=== PATIENT | female | born 1970 | race Two or more races ===

== ENCOUNTER 2024-07-30 19:02 | Emergency (ER) | payer MEDICAID, SELFPAY ==
[2024-07-30 19:03] VITALS: BMI 28.3
[2024-07-30 19:13] VITALS: BP 156/99; PULSE 62; RESP 18; TEMP 36.7; O2SAT 97
--- NOTE | 2024-07-30 19:14 | EKG_ITS ---
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
--- NOTE | 2024-07-30 19:14 | XR_ITS ---
Examination: CT brain head without contrast. 2-D sagittal coronal reconstructions Date and time of exam:July 30, 2024 2019 hrs. Indications: Headache with pressure beginning today CTDI: vol (mGy):47.9 DLP: (mGycm):927 Technique: Multiple CT axial sections of the brain have been obtained, 5 mm slice thickness. Contrast has not been administered. 2-D sagittal, coronal reconstructions have been obtained Low dose protocols were performed. One or more of the following dose reduction techniques were used; automated exposure control, adjustment of the mA and/or KV according to patient size, use of iterative reconstruction technique. Findings: No significant ventricular enlargement. Intra-axial or extra-axial hemorrhage density is not seen. No mass effect or midline shift Basal cisterns are not remarkable. Fourth ventricle is midline. Cranial vault intact. Bilateral otitis externa Impression: Negative for acute hemorrhage, mass effect or midline shift Advise clinical correlation and follow-up accordingly
--- NOTE | 2024-07-30 19:15 | PD.EDRME ---
Rapid Medical Screening Exam RME Arrival date/time: 07/30/24 19:02 54 yo f present to ED for c/o of headache, abd/nausea I have greeted and performed a focused initial assessment of this patient. A comprehensive ED assessment and evaluation of the patient, analysis of all test results, and completion of the medical decision making process will be conducted by additional ED providers. Chief Complaint: Headache Time Seen by Provider: 07/30/24 19:04 Vital signs: Vital Signs Temperature 98.1 F 07/30/24 19:13 Pulse Rate 62 07/30/24 19:13 Respiratory Rate 18 07/30/24 19:13 Blood Pressure 156/99 H 07/30/24 19:13 Pulse Oximetry (%) 997 H 07/30/24 19:13
[2024-07-30] MEDS: ACETAMINOPHEN 500 MG TABLET 1000 MG PO (19:40)
[2024-07-30] MEDS: ONDANSETRON ODT 4 MG TABRAP PO (19:41)
[2024-07-30 19:44] LABS: Basophils % (Auto) 1 % (0-2.5); Eosinophils # (Auto) 0.2 Thou/mm3 (0.0-0.5); Eosinophils % (Auto) 3 % (0-10); Hematocrit 41.4 % (36.0-46.0); Hemoglobin 14.4 g/dL (12.0-16.0); Immature Granulocytes % (Auto) 0 % (0-0); Immature Granulocytes Auto 0.01 Thou/mm3 (0.00-0.00); Lymphocytes # (Auto) 2.6 Thou/mm3 (1.0-4.8); Lymphocytes % (Auto) 43 % (10-50); Mean Corpuscular HGB Conc 34.8 g/dl (31.0-37.0); Mean Corpuscular Hemoglobin 30.4 pg (25.0-35.0); Mean Corpuscular Volume 87 fL (80-100); Monocytes # (Auto) 0.8 Thou/mm3 (0.0-0.8); Monocytes % (Auto) 13 % (0-12); Neutrophils # (Auto) 2.4 Thou/mm3 (1.8-7.7); Neutrophils % (Auto) 40 % (37-80); Nucleated Red Blood Cell % 0 /100 WBC (0); Platelet Count 160 Thou/mm3 (140-440); RDW Standard Deviation 39.9 fL (36.4-46.3); Red Blood Count 4.74 Miln/mm3 (4.00-5.20); White Blood Count 6.1 Thou/mm3 (3.6-11.0)
[2024-07-30 20:04] LABS: Alanine Aminotransferase 54 U/L (10-49); Albumin, Serum 4.5 gm/dL (3.5-5.0); Albumin/Globulin Ratio 1.5 (1.2-2.2); Alkaline Phosphatase 166 U/L (46-116); Anion Gap 7 (7-16); Aspartate Amino Transferase 44 U/L (0-34); BUN/Creatinine Ratio 17 Ratio (12-20); Bilirubin,Total 0.5 mg/dL (0.3-1.2); Blood Urea Nitrogen 12 mg/dL (9-23); Carbon Dioxide 26.2 mMol/L (20.0-31.0); Chloride 109 mMol/L (98-107); Creatinine (Component) 0.7 mg/dL (0.6-1.3); Estimated Creatinine Clearance 79.2 mL/min (>60); Globulin 3.1 gm/dL (2.3-3.5); Glucose 95 mg/dL (74-106); Lipase 41 U/L (12-53); Osmolality,Calculated 282 (275-295); Potassium 4.1 mMol/L (3.4-5.1); Sodium 142 mMol/L (136-145); Total Protein 7.6 gm/dL (5.7-8.2); Troponin I 0.022 ng/mL (0.0-0.045); eGFR > 60 See Note
[2024-07-30 20:20] LABS: Collection Type, Urine Voided
[2024-07-30 20:36] LABS: Bacteria,Urine 1+; Bilirubin,Urine Negative (Negative); Blood,Urine Negative (Negative); Clarity,Urine Clear (Clear/Hazy); Color,Urine Lt-Yellow (Lt Yel-Yel); Glucose, Urine Negative (Negative); Ketones,Urine Negative (Negative); Leukocyte Esterase,Urine Positive (Negative); Nitrite,Urine Negative (Negative); PH,Urine 6.5 (5.0-7.0); Protein,Urine Negative (Neg - Trace); RBC,Urine 3 /hpf (0-3); Specific Gravity,Urine 1.014 (1.001-1.035); Squamous Epithelial Cell,Urine 10 /hpf (0-5); Urobilinogen,Urine Negative mg/dL (0.0-1.0); WBC,Urine 3 /hpf (0-5)
--- NOTE | 2024-07-30 21:08 | EDNOTE_ITS ---
ED General RME/HPI General Chief complaint: Headache Stated complaint: HEADACHE/ABD PAIN X 1DAY Time Seen by Provider: 07/30/24 19:04 Arrival date/time: 07/30/24 19:02 CC: Headache HPI ongoing for the past 3 days, feels like a ball in the right side of her head. Denies nausea vomiting shortness of breath difficulty breathing blurred vision or seeing spots. No OTCs medicine taken forward. Patient states that the headache was a 10 out of 10 and is now improved to an 8 out of 10 after given medication in the waiting room. Patient also complaining of epigastric pain that is ongoing for 1 day however that is diminished with the pain medication given as well. Patient is afebrile nontoxic-appearing not in any acute distress with family member at bedside. RME / HPI RME / HPI narrative: 07/30/24 19:02 54 yo f present to ED for c/o of headache, abd/nausea I have greeted and performed a focused initial assessment of this patient. A comprehensive ED assessment and evaluation of the patient, analysis of all test results, and completion of the medical decision making process will be conducted by additional ED providers. Related Data Previous Rx's ?Medication ?Instructions ?Recorded meloxicam 7.5 mg tablet 7.5 mg PO QDAY #10 tabs 07/17 08/10 Allergies Allergy/AdvReac Type Severity Reaction Status Date / Time No Known Allergies Allergy Verified 07/30/24 19:04 Review of Systems Review of Systems Narrative Review of Systems: GEN: No fever, no chills, no weight loss EYES: No discharge, no visual changes, no pain HEENT: No ear pain, no congestion, no sore throat PULM: No shortness of breath, no cough, no congestion CV: No chest pain, no dyspnea on exertion, no palpitations GI: No nausea, no vomiting, no diarrhea, + pain, no constipation : No frequency, no urgency, no dysuria MUSC/SKEL: No joint pain, no back pain SKIN: No rash PSYCH: No hallucinations, no depression HEME/LYMPH: No easy bleeding or bruising tendencies NEURO: No weakness, + headache ED Exam Narrative Physical exam: [General: Not in any acute distress Head normocephalic HEENT: Within acceptable limits Neck is supple nontender Chest equal chest rise nontender to palpation Respiratory: Clear to auscultation no wheezes crackles or rubs CV: Rate rhythm is regular no murmurs rubs or clicks Abdomen is distended secondary to body habitus soft nontender no masses positive bowel sounds all 4 quadrants Back: No CVA tenderness no spinous process tenderness from cervical spine thoracic and lumbar spine Skin: Intact no petechiae rash induration ulceration or crepitus Extremities: Moving all extremities against resistance cap refill less than 2 seconds neurosensory intact Neuro: Awake alert oriented x3 Glascow coma 15 no focal deficits] Course Quality Measures none Orders Category Date Time Status EKG (ED ONLY) *Do not use* NOW Care 07/30/24 19:[address] head/brain wo con Stat Exams 07/30/24 19:14 Completed EKG (ED Only) Stat Exams 07/30/24 19:14 Draft CBC Stat Lab 07/30/24 19:40 Completed CMP [Comprehensive Metabolic Panel] Stat Lab 07/30/24 19:40 Completed Lipase Stat Lab 07/30/24 19:40 Completed Troponin I Stat Lab 07/30/24 19:40 Completed UA [Urinalysis] Stat Lab 07/30/24 20:03 Completed Acetaminophen Tab [Tylenol ES Tab] Med 07/30/24 19:15 Discontinued 1,000 mg PO X1 ONE Ondansetron Odt [Zofran Odt] Med 07/30/24 19:14 Discontinued 4 mg PO X1 ONE Vital Signs Vital signs: Vital Signs Temperature 98.1 F 07/30/24 19:13 Pulse Rate 62 07/30/24 19:13 Respiratory Rate 18 07/30/24 19:13 Blood Pressure 156/99 H 07/30/24 19:13 Pulse Oximetry (%) 97 07/30/24 19:13 Oxygen Delivery Method Room Air 07/30/24 19:13 [facility] Patient data External records reviewed:: [facility] previous records Clinical information provided by:: patient and family Social determinants that could affect healthcare access:: none Patient has the following chronic illnesses:: None How is presenting disease/condition affected by chronic disease/condition?: u neffected by Evaluation data The following diagnostics were reviewed and interpreted by me:: lab results and radiology exam(s) Lab and/or radiology exams considered but not ordered:: CT head is interpreted by me read by radiology as negative for any acute finding CBC shows no acute electrolyte imbalances renal impairment transaminitis or T. bili elevation CMP shows a chloride of 109 no other electrolyte imbalances or renal impairment there is mild transaminitis but no T. bili elevation. Lipase is negative Urine is negative for any acute finding and is most likely contaminated EKG performed at 1916 shows a ventricular rate of 60 MN interval 157 QRS of 133 QTc of 420 this is sinus rhythm right bundle branch block. No old EKG for comparison Interpretation Summary: Patient has a general headache, there is no bulging or mass in her scalp. CT of the head is negative. Abdomen is epigastric pain that is diminished with OTC medication. At this time comfortable discharging her home with headache and epigastric pain. Patient has follow-up with her primary care provider. Medications Medications considered but not ordered:: None Medication administrations:: Medication Administration History Discontinued Medications Acetaminophen (Acetaminophen 500 Mg Tablet) 1,000 mg PO X1 ONE Stop: 07/30/24 19:16 Last Admin: 07/30/24 19:40 Dose: 1,000 mg Documented By: SHAE Ondansetron HCl (Ondansetron Odt 4 Mg Tabrap) 4 mg PO X1 ONE; Protocol Stop: 07/30/24 19:15 Last Admin: 07/30/24 19:41 Dose: 4 mg Documented By: SHAE None Consultations Consultation(s) initiated? (list below): No Diagnosis Differential Diagnosis ED Complaint MDM: Headache migraine gastritis Most likely diagnosis given after review of the tests above:: Headache epigastric pain Admission Indicated Admission indicated?: not indicated Explain why admission is indicated or not indicated:: Stable for discharge Admission Request Was there a request for admission?: No Disposition Plan Disposition Plan: Discharge Discharge Attestation Discharge Attestation: The patient and all family members were given an opportunity to ask questions and understood the discharge instructions. Discharge instructions specifically effects, indications for sooner follow up or return to the emergency department, and the expected course of current diagnosis. Patient condition: Stable Medical Decision Making Differential Diagnosis Differential Diagnosis: Headache migraine gastritis Lab Data 07/30/24 19:40 07/30/24 19:40 Labs: Lab Results 07/30/24 07/30/24 Range/Units 19:40 20:03 WBC 6.1 (3.6-11.0) Thou/mm3 RBC 4.74 (4.00-5.20) Miln/mm3 Hgb 14.4 (12.0-16.0) g/dL Hct 41.4 (36.0-46.0) % MCV 87 (80-100) fL MCH 30.4 (25.0-35.0) pg MCHC 34.8 (31.0-37.0) g/dl RDW Std Deviation 39.9 (36.4-46.3) fL Plt Count 160 (140-440) Thou/mm3 Neut % (Auto) 40 (37-80) % Lymph % (Auto) 43 (10-50) % [place] % (Auto) 13 H (0-12) % Eos % (Auto) 3 (0-10) % Baso % (Auto) 1 (0-2.5) % Neut # (Auto) 2.4 (1.8-7.7) Thou/mm3 Lymph # (Auto) 2.6 (1.0-4.8) Thou/mm3 [place] # (Auto) 0.8 (0.0-0.8) Thou/mm3 Eos # (Auto) 0.2 (0.0-0.5) Thou/mm3 Baso # (Auto) 0.0 (0.0-0.2) Thou/mm3 Immature Gran # (Auto) 0.01 H (0.00-0.00) Thou/mm3 Absolute Nucleated RBC 0.00 (0.00-0.00) Thou/mm3 Immature Gran % 0 (0-0) % Nucleated RBC % 0 (0) /100 WBC Sodium 142 (136-145) mMol/L Potassium 4.1 (3.4-5.1) mMol/L Chloride 109 H (98-107) mMol/L Carbon Dioxide 26.2 (20.0-31.0) mMol/L Anion Gap 7 (7-16) BUN 12 (9-23) mg/dL Creatinine 0.7 (0.6-1.3) mg/dL Estim Creat Clear Calc 79.2 (>60) mL/min eGFR > 60 (60 - ) See Note BUN/Creatinine Ratio 17 (12-20) Ratio Glucose 95 (74-106) mg/dL Calculated Osmolality 282 (275-295) Calcium 9.0 (8.3-10.6) mg/dL Corrected Calcium 9.0 (8.5-10.1) mg/dL Total Bilirubin 0.5 (0.3-1.2) mg/dL AST 44 H (0-34) U/L ALT 54 H (10-49) U/L Alkaline Phosphatase 166 H (46-116) U/L Troponin I 0.022 (0.0-0.045) ng/mL Total Protein 7.6 (5.7-8.2) gm/dL Albumin 4.5 (3.5-5.0) gm/dL Globulin 3.1 (2.3-3.5) gm/dL Albumin/Globulin Ratio 1.5 (1.2-2.2) Lipase 41 (12-53) U/L Ur Collection Type Voided Urine Color Lt-Yellow (Lt Yel-Yel) Urine Clarity Clear (Clear/Hazy) Urine pH 6.5 (5.0-7.0) Ur Specific [place] 1.014 (1.001-1.035) Urine Protein Negative (Neg - Trace) Urine Glucose (UA) Negative (Negative) Urine Ketones Negative (Negative) Urine Blood Negative (Negative) Urine Nitrite Negative (Negative) Urine Bilirubin Negative (Negative) Urine Urobilinogen (Auto) Negative (0.0-1.0) mg/dL Ur Leukocyte Esterase Positive (Negative) Urine RBC 3 (0-3) /hpf Urine WBC 3 (0-5) /hpf Ur Squamous Epith Cells 10 H (0-5) /hpf Urine Bacteria 1+ A (None) Discharge Plan Plan Patient Disposition: HOME (Self Care) Patient condition on transfer: Stable Prescriptions/Referrals Prescriptions/Med Rec: New meloxicam 7.5 mg tablet 7.5 mg PO QDAY Qty: 10 0RF Referrals: Omar Gr MD [Primary Care Provider] - In 1 week Problem List Clinical Impression: Headache, Epigastric pain Patient/Caregiver Discharge Instructions Education Materials: Self-Care for Headaches, ED Epigastric Pain (Uncertain Cause) Print Language: Turkish Stand Alone Forms: Micaela Award Info., Patient Portal Info Letter, Work/School Release RACHEL/BRAYDEN Supervising Physician RACHEL/BRAYDEN Supervising Physician: Tod Jenkins EnP
== END 2024-07-30 21:19 | disposition home or self-care (01) ==
PROVIDERS: Physician Assistant; Emergency Provider Emergency Medicine; PCP Family Medicine
DX: R51.9 Headache, unspecified (principal); R10.13 Epigastric pain
CPT/HCPCS: 36415; 70450; 80053; 81001; 83690; 84484; 85025; 93005; 99284; Q0162; A9270